=== PATIENT | female | born 1990 | race Caucasian/White ===

== ENCOUNTER 2022-03-21 05:39 | Inpatient (IN) ==
[2022-03-21] MEDS ORDERED: FAMOTIDINE 20 MG/2 ML VIAL IV ONE (05:49)
[2022-03-21] MEDS ORDERED: METHYLERGONOVINE 0.2 MG/1 ML AMP IM PRN (05:49)
[2022-03-21] MEDS ORDERED: CITRIC ACID/SODIUM CITRATE 30 ML UDCUP PO ONE (05:49)
[2022-03-21] MEDS ORDERED: miSOPROStoL 200 MCG TABLET RECTAL PRN (05:49)
[2022-03-21] MEDS ORDERED: ceFAZolin 2,000 MG/50 ML DUPLEX IV ONE (05:49)
[2022-03-21] MEDS ORDERED: TRANEXAMIC ACID 1,000 MG in SODIUM CHLORIDE 0.9% 100 ML IV PRN (05:49)
[2022-03-21] MEDS ORDERED: CARBOPROST TROMETHAMINE 250 MCG/ML AMP IM PRN (05:49)
[2022-03-21] MEDS ORDERED: OXYTOCIN/LR 20 UNIT/1,000 ML BAG IV ONE ×4 (05:49→12:00)
[2022-03-21] MEDS ORDERED: LACTATED RINGERS 1,000 ML IV SCH (06:00)
[2022-03-21 06:31] LABS: Basophils % 0.2 % (0.0-0.8); Eosinophils # 0.1 10*3/uL (0.0-0.87); Eosinophils % 0.9 % (0.00-10.9); Hemoglobin 11.7 GM/DL (12.0-16.0); Immature Granulocytes % 0.5 %; Immature Granulocytes Absolute 0.06 #; Lymphocytes # 2.3 10*3/uL (1.4-4.0); Mean Corpuscular HGB Conc 32.5 GM/DL (32-36); Mean Corpuscular Volume 98.4 FL (87-102); Mean Platelet Volume 11.3 FL (9.6-12.0); Monocytes # 1.1 10*3/uL (0.11-0.8); Monocytes % 8.4 % (1.7-12.7); Platelet Count 250 T/CUMM (130-400); Red Blood Count 3.66 MC/CUMM (3.8-5.5); White Blood Count 12.6 T/CUMM (4-12)
[2022-03-21] MEDS ORDERED: PHENYLEPHRINE 1 MG/10 ML SYRINGE IV ONE (06:52)
[2022-03-21] MEDS ORDERED: BUPIVACAINE MPF 0.5% 30 ML VIAL ONE (06:52)
[2022-03-21] MEDS ORDERED: buprenorphine HCL 0.3 MG/ML VIAL ONE (06:52)
[2022-03-21] MEDS ORDERED: ONDANSETRON 4 MG/2 ML VIAL ONE (06:52)
[2022-03-21] MEDS ORDERED: KETOROLAC 30 MG/1 ML VIAL IV SCH (07:00)
[2022-03-21] MEDS ORDERED: ACETAMINOPHEN 500 MG TABLET PO SCH (07:00)
[2022-03-21] MEDS ORDERED: miSOPROStoL 200 MCG TABLET ONE (07:02)
[2022-03-21] MEDS ORDERED: TRANEXAMIC ACID 1,000 MG/10 ML VIAL ONE (07:02)
[2022-03-21] MEDS ORDERED: SODIUM CHLORIDE 0.9% 0 ML IV ONE (07:02)
[2022-03-21] MEDS ORDERED: METHYLERGONOVINE 0.2 MG/1 ML AMP ONE (07:02)
[2022-03-21] MEDS ORDERED: CARBOPROST TROMETHAMINE 250 MCG/ML AMP IM ONE (07:03)
[2022-03-21] MEDS ORDERED: LACTATED RINGERS 1,000 ML IV ONE (07:43)
[2022-03-21 08:18] LABS: Cord Arterial Blood HCO3 22.1 MMOL/L
[2022-03-21 08:22] LABS: Cord Venous Blood HCO3 22.6 MMOL/L; Cord Venous Blood PCO2 44.9 MMHG; Cord Venous Blood PO2 26.2
[2022-03-21] MEDS ORDERED: ACETAMINOPHEN 325 MG TABLET PO PRN (08:58)
[2022-03-21] MEDS ORDERED: MEASLES/MUMPS/RUBELLA VACCINE 0.5 ML VIAL SUBCUT ONE (08:58)
[2022-03-21] MEDS ORDERED: WITCH HAZEL PADS 100/JAR TOP PRN (08:58)
[2022-03-21] MEDS ORDERED: ONDANSETRON 4 MG/2 ML VIAL IV PRN (08:58)
[2022-03-21] MEDS ORDERED: oxyCODONE/ACETAMINOPHEN 5-325 MG TABLET PO PRN ×2 (08:58)
[2022-03-21] MEDS ORDERED: DIPH/TET/ACEL PERT BOOSTER VACCINE 0.5 ML VIAL IM ONE (08:58)
[2022-03-21] MEDS ORDERED: HYDROCORTISONE 2.5% RECTAL CREAM 30 GM TUBE TOP PRN (08:58)
[2022-03-21] MEDS ORDERED: LANOLIN 50% CREAM 0.3 OZ TUBE TOP PRN (08:58)
[2022-03-21] MEDS ORDERED: RHO(D) IMMUNE GLOBULIN 300 MCG SYRINGE IM ONE (08:58)
[2022-03-21] MEDS ORDERED: BISACODYL 10 MG SUPP RECTAL PRN (08:58)
[2022-03-21] MEDS ORDERED: BENZOCAINE 20%/MENTHOL 0.5% SPRAY 56 GM CAN TOP PRN (08:58)
[2022-03-21 09:06] LABS: Bacteria,Urine Few /HPF (Few); Mucus,Urine Occasional /LPF (Occasional); Squamous Epithelial Cell,Urine Occasional /HPF (0-10)
[2022-03-21 09:07] LABS: Bilirubin,Urine Negative (Negative); Blood, Urine Negative (Negative); Glucose,Urine (UA) Negative (Negative); Ketones,Urine Negative (Negative); Nitrite,Urine Negative (Negative); Protein,Urine Negative (Negative); Urine Appearance Clear (Clear); Urine Color Yellow (Yellow); Urine Specific Gravity 1.025 (1.001-1.035); Urine Urobilinogen 0.2 eU/dL (<2.0)
[2022-03-21] MEDS: DOCUSATE SODIUM 100 MG CAPSULE PO SCH ×2 (17:22→19:35)
[2022-03-21] MEDS: KETOROLAC 30 MG/1 ML VIAL IV SCH ×2 (17:28→23:06)
[2022-03-21] MEDS: ACETAMINOPHEN 500 MG TABLET PO SCH ×2 (17:30→23:05)
[2022-03-21] MEDS: HydrOXYzine PAMOATE 25 MG CAPSULE PO PRN (19:35)
[2022-03-22] MEDS: DOCUSATE SODIUM 100 MG CAPSULE PO SCH ×3 (04:36→21:32)
[2022-03-22] MEDS: KETOROLAC 30 MG/1 ML VIAL IV SCH (04:48)
[2022-03-22] MEDS: ACETAMINOPHEN 500 MG TABLET PO SCH (05:08)
[2022-03-22 06:06] LABS: Basophils % 0.3 % (0.0-0.8); Eosinophils # 0.1 10*3/uL (0.0-0.87); Eosinophils % 0.5 % (0.00-10.9); Hematocrit 31.9 VOL% (35.7-47.0); Hemoglobin 10.6 GM/DL (12.0-16.0); Immature Granulocytes % 0.5 %; Immature Granulocytes Absolute 0.06 #; Lymphocytes # 1.5 10*3/uL (1.4-4.0); Mean Corpuscular HGB Conc 33.2 GM/DL (32-36); Mean Corpuscular Volume 98.2 FL (87-102); Mean Platelet Volume 11.5 FL (9.6-12.0); Monocytes # 0.7 10*3/uL (0.11-0.8); Monocytes % 5.8 % (1.7-12.7); Neutrophils % 79.9 % (38.7-73.9); Platelet Count 228 T/CUMM (130-400); Red Blood Count 3.25 MC/CUMM (3.8-5.5); Red Cell Distribution Width 15.1 % (9.3-17.3); White Blood Count 11.8 T/CUMM (4-12)
[2022-03-22] MEDS: MAGNESIUM HYDROXIDE SUSP 30 ML UDCUP PO SCH ×2 (08:30→21:32)
[2022-03-22] MEDS: IBUPROFEN 800 MG TABLET PO PRN ×3 (08:30→23:46)
[2022-03-22] MEDS: SIMETHICONE CHEW 80 MG TABLET PO PRN ×2 (08:33→21:32)
[2022-03-22] MEDS ORDERED: MAGNESIUM CITRATE 300 ML BOTTLE PO ONE (23:46)
[2022-03-22] MEDS: HydrOXYzine PAMOATE 25 MG CAPSULE PO PRN (23:50)
[2022-03-23] MEDS: IBUPROFEN 800 MG TABLET PO PRN (06:32)
[2022-03-23 09:35] VITALS: BP 120/64
[2022-03-23] MEDS: MAGNESIUM HYDROXIDE SUSP 30 ML UDCUP PO SCH (10:13)
[2022-03-23] MEDS: DOCUSATE SODIUM 100 MG CAPSULE PO SCH (10:14)
== END 2022-03-23 14:48 | disposition home or self-care (01) | DRG 540 ==
LOC: N.LD 05:39 → N.OB 11:23
PROVIDERS: ADMIT Specialist; ATTEND Specialist
PROC: LDCSECT (ICD-10-PCS; 2022-03-21 07:00)